=== PATIENT | female | born 2000 | race Two or more races ===

== ENCOUNTER 2025-01-26 15:39 | Emergency (ER) | payer MEDICAID ==
[~2025-01-26] VITALS: Ht 157.5 cm; Wt 64.9 kg
[2025-01-26] MEDS ORDERED: ONDANSETRON HCL/PF 4 MG/2 ML VIAL ONE (15:57)
[2025-01-26] MEDS ORDERED: ACETAMINOPHEN ES 500 MG TABLET ONE (15:57)
[2025-01-26] MEDS: KETOROLAC TROMETHAMINE INJ 30 MG/ML VIAL IV ONE (16:00)
[2025-01-26 16:04] LABS: BASOPHILS # (AUTO) 0.1 K/uL (0.0-0.2); BASOPHILS % (AUTO) 0.7 % (0.0-2.0); EOSINOPHILS # (AUTO) 0.3 K/uL (0.0-0.7); EOSINOPHILS % (AUTO) 3.2 % (0.0-6.0); HEMATOCRIT 39 % (33-45); HEMOGLOBIN 13.7 g/dL (11.5-14.8); LYMPHOCYTES % (AUTO) 22.9 % (20.0-44.0); MEAN CORPUSCULAR HEMOGLOBIN 31 PG (26.0-33.0); MEAN CORPUSCULAR HGB CONC 35 g/dl (31.0-36.0); MEAN CORPUSCULAR VOLUME 90 fL (82-100); MONOCYTES # (AUTO) 0.5 K/uL (0.1-1.30); MONOCYTES % (AUTO) 5.3 % (2.0-12.0); NEUTROPHILS # (AUTO) 5.9 K/uL (1.8-8.9); NEUTROPHILS % (AUTO) 67.9 % (43.0-81.0); PLATELET COUNT (AUTO) 240 K/uL (150-450); RED BLOOD CELL COUNT(AUTO) 4.37 MIL/uL (4.0-5.2); RED CELL DISTRIBUTION WIDTH 12.8 % (11.5-15.0); WHITE BLOOD COUNT (AUTO) 8.6 K/uL (4.3-11.0)
[2025-01-26] MEDS: IV NS 0.9% 1,000 ML BAG IV ONE (16:04)
[2025-01-26] MEDS: ONDANSETRON HCL/PF 4 MG/2 ML VIAL IVP ONE (16:04)
[2025-01-26] MEDS: ACETAMINOPHEN ES 500 MG TABLET PO ONE (16:05)
[2025-01-26 16:13] LABS: CALCIUM, SERUM 9.3 mg/dL (8.5-10.1); CREATININE 0.9 mg/dL (0.6-1.3); POTASSIUM 3.6 mmol/L (3.5-5.1)
[2025-01-26 16:20] LABS: ALBUMIN 4.2 g/dL (3.4-5.0); BILIRUBIN,DIRECT 0.1 mg/dL (0.0-0.2); BILIRUBIN,TOTAL 0.7 mg/dL (0.2-1.0); TOTAL PROTEIN, SERUM 7.2 g/dL (6.4-8.2)
[2025-01-26] MEDS ORDERED: IBUP-1957 PO (17:28)
[2025-01-26] MEDS ORDERED: ONDA4TAB11 PO (17:28)
[2025-01-26] MEDS ORDERED: KETOROLAC TROMETHAMINE INJ 30 MG/ML VIAL ONE (17:30)
[2025-01-26 18:21] LABS: APPEARANCE,URINE SLIGHTLY CLOUDY (CLEAR); BILIRUBIN,URINE 1+ (NEGATIVE); BLOOD, URINE 3+ Ery/uL (NEGATIVE); COLOR,URINE YELLOW (YELLOW); KETONES,URINE TRACE mg/dL (NEGATIVE); LEUKOCYTE ESTERASE ,URINE TRACE (NEGATIVE); NITRITE, URINE NEGATIVE (NEGATIVE); PH,URINE 6.5 (5.0-8.0); PROTEIN,URINE 2+ mg/dl (NEGATIVE); UGLUCOSE NEGATIVE (NEGATIVE); UROBILINOGEN,URINE 0.2 EU/dL (0.2)
[2025-01-26 18:23] LABS: RBC,URINE 51-80 /HPF (0-2)
[2025-01-26 18:25] LABS: ADD URINE CULTURE NO; BACTERIA,URINE Rare /HPF (None Seen)
[2025-01-26 18:29] LABS: PREGNANCY TEST URINE QUAL NEGATIVE (NEGATIVE)
[2025-01-26 18:34] VITALS: BP 135/81; TEMP 98.6; O2SAT 98
== END 2025-01-26 18:35 | disposition home or self-care (01) ==
LOC: ER 16:20
DX: N94.6 Dysmenorrhea, unspecified (principal); R10.2 Pelvic and perineal pain; R11.2 Nausea with vomiting, unspecified; R19.7 Diarrhea, unspecified; R55 Syncope and collapse; F17.200 Nicotine dependence, unspecified, uncomplicated; Z79.1 Long term (current) use of non-steroidal anti-inflammatories (NSAID)
CPT/HCPCS: 99285; 96374; 76856; 96361; 96375; 93005; 85025; 80048; 83690; 80076; 81001; 36415; 84703 ×2; J1885; J2405; J7030